=== PATIENT | female | born 1960 | race Caucasian/White ===

== ENCOUNTER 2019-04-06 08:58 | Emergency (ER) | payer OTHER ==
[~2019-04-06] VITALS: Ht 152.4 cm; Wt 62.1 kg
[~2019-04-06 08:58] MED LIST: CARI350T PO; OXYC-279 PO
[2019-04-06 09:01] VITALS: BP 166/90; PULSE 69; RESP 18; Ht 152.4 cm; Wt 62.1 kg
[2019-04-06] MEDS ORDERED: KETOROLAC 60 MG INJ IM STA (09:15)
[2019-04-06] MEDS ORDERED: DIAZEPAM 5 MG TAB PO ONE (09:30)
[2019-04-06] MEDS ORDERED: DEXAMETHASONE 10 MG/ML 1 ML INJ IM ONE (09:30)
[2019-04-06] MEDS ORDERED: NAPR-985 PO (10:38)
[2019-04-06] MEDS ORDERED: CYCL10TA7 PO (10:38)
[2019-04-06] MEDS ORDERED: MED4DP PO (10:38)
[2019-04-06] MEDS ORDERED: HYDR-4011 PO (10:38)
--- NOTE | 2019-04-06 12:36 | ERD ---
ER Documentation Chief Complaint Chief Complaint LOWER BACK PAIN X7 DAYS HPI 58-year-old female presenting with back pain for the last 7 days. Patient states that she has pain worse with movement denies any traumatic falls or injuries. She denies any changes in urination or bowel movement she states she has sharp stabbing pain running down both legs. She denies any numbness or hurt her legs. She took ibuprofen with occasional alleviation however over the last day or 2 has stopped alleviating her pain. Denies any abdominal pain. Medical history is hypertension. NKDA. Surgical history denies. Social history denies ROS All systems reviewed and are negative except as per history of present illness. Medications Home Meds Active Scripts Cyclobenzaprine Hcl* (Cyclobenzaprine Hcl*) 10 Mg Tablet, 10 MG PO TID, #15 TAB Prov:ZHEN HERNANDEZ PA-C 04/06/19 Naproxen* (Naprosyn*) 500 Mg Tablet, 500 MG PO BID PRN for PAIN AND/OR INFLAMMATION, #30 TAB Prov:ZHEN HERNANDEZ PA-C 04/06/19 Hydrocodone/Acetaminophen ([place] 5-325 Tablet) 1 Each Tablet, 1 TAB PO Q6H PRN for PAIN, #7 TAB Prov:ZHEN HERNANDEZ PA-C 04/06/19 Methylprednisolone* (Medrol* DOSE PACK) 4 Mg/Dose-Pack Tab.ds.pk, 4 MG PO . DI RECTED, #1 PACKET Prov:ZHEN HERNANDEZ PA-C 04/06/19 Oxycodone HCl/Acetaminophen (Percocet 5-325 mg Tablet) 1 Each Tablet, 1 EACH PO BID PRN for PAIN, #12 TAB Prov:AJ PRINCE MD 08/13/16 Carisoprodol* (Soma*) 350 Mg Tablet, 350 MG PO TID PRN for MUSCLE SPASMS, #15 TAB Prov:AJ PRINCE MD 08/13/16 Allergies Allergies: Coded Allergies: No Known Allergy (Unverified , 08/13/16) PMhx/Soc Anesthesia Reaction: No Hx Neurological Disorder: No Hx Respiratory Disorders: No Hx Cardiac Disorders: No Hx Psychiatric Problems: No Hx Miscellaneous Medical Probl: Yes (chronic back pain) Hx Alcohol Use: Yes (1x per month) Hx Substance Use: No Hx Tobacco Use: No Smoking Status: Never smoker FmHx Family History: No diabetes, No coronary disease, No other Physical Exam Vitals Vital Signs Date Temp Pulse Resp B/P (MAP) Pulse Ox O2 O2 Flow FiO2 Time Delivery Rate 04/06/19 98.2 69 18 166/90 100 09:01 (115) Physical Exam GENERAL: The patient is well-appearing, well-nourished, in no acute distress CHEST: Clear to auscultation bilaterally. There are no rales, wheezes or rhonchi. HEART: Regular rate and rhythm. No murmurs, clicks, rubs or gallops. ABDOMEN:Soft, nontender and nondistended. Good bowel sounds. No rebound or guarding. No gross peritonitis. No gross organomegaly or masses. No Obando sign or McBurney point tenderness. BACK: No midline or flank tenderness. Palpation over paraspinous muscles of the lumbar spine. No bony step-offs felt along EXTREMITIES: Equal pulses bilaterally. There is no peripheral clubbing, cyanosis or edema. No focal swelling or erythema. Full range of motion. Grossly neurovascularly intact. NEUROLOGIC: Alert and oriented. Cranial nerves II through XII intact. Motor strength in all 4 extremities with 5 out of 5 strength. Sensation grossly intact. Normal speech and gait. SKIN: There is no apparent rash or petechiae. The skin is warm and dry. Results 24 hrs Laboratory Tests Test 04/06/19 09:24 Bedside Urine pH (LAB) 6.0 Bedside Urine Protein (LAB) Negative Bedside Urine Glucose (UA) Negative Bedside Urine Ketones (LAB) Negative Bedside Urine Blood Negative Bedside Urine Nitrite (LAB) Negative Bedside Urine Leukocyte Esterase (L Negative Current Medications Medications Dose Sig/Wally Start Time Status Last (Trade) Ordered Route PRN Stop Time Admin Dose Reason Admin Diazepam 5 mg ONCE ONCE 04/06/19 DC 04/06/19 (Valium) PO 09:30 09:24 04/06/19 09:31 10 mg ONCE ONCE 04/06/19 DC 04/06/19 Dexamethasone IM 09:30 09:25 (Decadron) 04/06/19 09:31 Ketorolac 60 mg ONCE STAT 04/06/19 DC 04/06/19 Tromethamine IM 09:15 09:25 (Toradol) 6/17/19 09:17 Procedures/MDM DIAGNOSTIC IMAGING REPORT Patient: BLAIR ESCOBAR : 1960 Age: 58 Sex: F MR #: [id number] [facility] #: [id number] DOS: 04/06/19 0915 Ordering MD: MAHENDRA HERNANDEZ PA-C Location: [facility] Room/Bed: PROCEDURE: XR Lumbar Spine. CLINICAL INDICATION: Pain TECHNIQUE: Three views of the lumbar spine were obtained. COMPARISON: None. FINDINGS: There is dextrocurvature of the lumbar spine. Normal lumbar lordosis is preserved. Vertebral body heights are maintained. Intervertebral disc spaces are preserved. There is mild to moderate lower lumbar spine facet osteoarthritis. No fracture or subluxation is identified. IMPRESSION: 1. Dextrocurvature of the lumbar spine with mild to moderate lower lumbar spine degenerative changes. ER Course: Valium, Decadron and Toradol given in ED. Urinalysis negative. MDM: 58-year-old female presents with back pain. I have low suspicion for acute fracture or dislocation. Patient does not require further imaging or blood work. Patient likely has muscular strain with nerve impingement. Patient has arthritic changes noted in the spine which is causing irritation to the nurse. Patient be discharged with supportive medications but recommended follow-up with orthopedist. I have low suspicion for acute fracture dislocation I have low suspicion for cauda equina, discitis or epidural abscess. Patient is discharged with strict ER precautions. All questions answered at discharge Departure Diagnosis: Primary Impression: Back pain Condition: Stable Patient Instructions: Back Pain W/ Sciatica Referrals: [facility] YOU HAVE RECEIVED A MEDICAL SCREENING EXAM AND THE RESULTS INDICATE THAT YOU DO NOT HAVE A CONDITION THAT REQUIRES URGENT TREATMENT IN THE EMERGENCY DEPARTMENT. FURTHER EVALUATION AND TREATMENT OF YOUR CONDITION CAN WAIT UNTIL YOU ARE SEEN IN YOUR DOCTORS OFFICE WITHIN THE NEXT 1-2 DAYS. IT IS YOUR RESPONSIBILITY TO MAKE AN APPOINTMENT FOR FOLOW-UP CARE. IF YOU HAVE A PRIMARY DOCTOR --you should call your primary doctor and schedule an appointment IF YOU DO NOT HAVE A PRIMARY DOCTOR YOU CAN CALL OUR PHYSICIAN REFERRAL HOTLINE AT IF YOU CAN NOT AFFORD TO SEE A PHYSICIAN YOU CAN CHOSE FROM THE FOLLOWING [facility] [address] [facility]. [facility] [address] [facility] [place] [address] [facility] [address] [facility] [address] [facility] [address] [facility]. [facility] [address] Additional Instructions: FOLLOW UP WITH YOUR PRIMARY CARE PHYSICIAN TOMORROW.Return to this facility if you are not improving as expected. ZHEN HERNANDEZ PA-C Apr 06, 2019 12:36
== END 2019-04-06 11:03 | disposition home or self-care (01) ==
LOC: FTE 08:58
DX: M54.5 Low back pain (principal)
CPT/HCPCS: 72100; 81003; 96372; 99284; J1100; J1885